=== PATIENT | male | born 1990 | race African-American/Black ===

== ENCOUNTER 2018-06-30 07:08 | Emergency (ER) | payer MEDICAID ==
[~2018-06-30] VITALS: Ht 157.5 cm; Wt 54.0 kg
[2018-06-30 08:15] VITALS: BP 142/91
== END 2018-06-30 08:30 | disposition home or self-care (01) ==
LOC: ER 07:30
DX: G47.00 Insomnia, unspecified (principal); F41.9 Anxiety disorder, unspecified; F14.10 Cocaine abuse, uncomplicated; F17.210 Nicotine dependence, cigarettes, uncomplicated
CPT/HCPCS: 99284; 99406

== ENCOUNTER 2019-02-20 11:26 | Emergency (ER) | payer MEDICAID ==
[~2019-02-20] VITALS: Ht 170.2 cm; Wt 73.0 kg
[2019-02-20] MEDS ORDERED: IBUPROFEN 600MG TABLET PO STA (12:25)
[2019-02-20 14:48] VITALS: BP 120/65
== END 2019-02-20 14:50 | disposition home or self-care (01) ==
LOC: ER 11:26
DX: R07.89 Other chest pain (principal); F14.10 Cocaine abuse, uncomplicated
CPT/HCPCS: 71045; 73030; 93005; 99283

== ENCOUNTER 2019-04-15 20:48 | Emergency (ER) | payer SELFPAY | END 2019-04-15 22:38 | disposition left against medical advice (07) | LOC: ER 20:48 | DX: R51 Headache (principal); Z53.21 Procedure and treatment not carried out due to patient leaving prior to being seen by health care provider ==

== ENCOUNTER 2022-11-06 10:59 | Emergency (ER) | payer MEDICAID ==
[~2022-11-06] VITALS: Ht 175.3 cm; Wt 68.0 kg
[2022-11-06 11:00] VITALS: TEMP 98.4; O2SAT 98
[2022-11-06 11:45] VITALS: BP 120/76; PULSE 77; RESP 16
[2022-11-06] MEDS ORDERED: IBUPROFEN 600MG TABLET PO ONE (11:45)
[2022-11-06] MEDS ORDERED: IBUP-2029 MT (12:34)
== END 2022-11-06 13:19 | disposition home or self-care (01) ==
LOC: ER 10:59
DX: S40.012A Contusion of left shoulder, initial encounter (principal); F14.10 Cocaine abuse, uncomplicated; W18.39XA Other fall on same level, initial encounter; Y93.89 Activity, other specified; Y92.89 Other specified places as the place of occurrence of the external cause; Y99.8 Other external cause status
CPT/HCPCS: 73030; 99283; A4565